=== PATIENT | male | born 1960 | race Caucasian/White ===

== ENCOUNTER 2018-03-19 08:59 | Outpatient (CLI) | payer OTHER ==
--- NOTE | 2018-03-19 13:40 | MRI ---
CERVICAL SPINE MRI WITHOUT IV CONTRAST: History: 58-year-old male with history of neck radiculopathy. M54.12 FINDINGS: Multiplanar, multisequence MRI examination of the cervical spine is performed. C2-3 disc level is unremarkable. C3-4: There is disc osteophytosis with some mild to moderate central canal and lateral recess stenosi s and bilateral foraminal stenosis, worse on the right side. C4-5: There is disc osteophytosis with a somewhat more focal central protrusion with moderate central canal stenosis and mild to moderate bilateral recess stenosis and moderate bilateral foraminal steno sis, worse on the right side. C5-6: There is diffuse disc osteophytosis with mild indention of the central thecal sac without signi ficant lateral recess stenosis and mild foraminal stenosis. C6-7: There is generalized disc osteophytosis with mild lateral recess and moderate bilateral foramin al stenosis without significant central canal stenosis. C7-T1: Unremarkable. No spinal cord mass or spinal cord compression. No significant abnormal marrow s ignal. IMPRESSION: Multilevel variable severity canal, lateral recess, and foraminal stenosis, particularly from C3-4 th rough C6-7. POS: [facility]
--- NOTE | 2018-03-19 15:07 | MRI ---
MRI LEFT SHOULDER: 03/19/2018 PROVIDED CLINICAL HISTORY: Left shoulder pain. FINDINGS: No radiographic comparisons. FINDINGS: Evaluation is markedly limited by patient motion. There is no evidence for a full-thickness rotator cuff tear. Partial-thickness undersurface tearing involving the anterior distal supraspinatus tendon, at the footplate, is suspected, which could be hi gh-grade in nature. The longhead biceps tendon appears intact and normally located. There is extensive glenohumeral articular cartilage loss, appearing full-thickness over much of the g lenoid articular surface. There are multiple bulky ossified intraarticular bodies present, measuring up to 3.4 cm in greatest dimension. Multiple large ossified bodies are also present within the long head biceps tendon sheath, measuring at least 6.1 cm in greatest craniocaudal dimension. There is de generative nondisplaced tearing involving the glenoid labrum. There is a moderate glenohumeral joint effusion. There is no significant subacromial, subdeltoid bursal fluid. Acromioclavicular joint os teoarthrosis is noted, which produces mass effect upon the subjacent supraspinatus. Rotator cuff mus cular volume appears preserved. IMPRESSION: 1. Limited study due to patient motion. 2. Partial-thickness undersurface tearing is suspected involving the anterior distal supraspinatus t endon of the footplate. 3. Extensive glenohumeral articular cartilage loss with multiple large intraarticular bodies within the glenohumeral joint, superior subscapularis recess, and longhead biceps tendon sheath. 4. Moderate glenohumeral joint effusion. 5. Acromioclavicular joint osteoarthrosis. POS: [facility]
== END 2018-03-19 09:00 | disposition home or self-care (01) ==
LOC: SCSMRI 08:59
PROVIDERS: ATTEND Orthopaedic Surgery Hand Surgery
DX: M25.512 Pain in left shoulder (principal); M54.12 Radiculopathy, cervical region; M19.012 Primary osteoarthritis, left shoulder; M25.412 Effusion, left shoulder; M24.112 Other articular cartilage disorders, left shoulder; M48.02 Spinal stenosis, cervical region
CPT/HCPCS: 72141

== ENCOUNTER 2018-07-10 00:09 | Outpatient (CLI) | payer OTHER ==
[2018-07-10 12:49] LABS: Anion Gap 11 mmol/L (10-20); BUN (Urea Nitrogen) 11 mg/dL (8.4-25.7); Calc. Creatinine Clearance 0 mL/min (70-130); Calcium 9.8 mg/dL (7.8-10.44); Carbon Dioxide 29 mmol/L (22-29); Chloride 104 mmol/L (98-107); Estimated GFR-MDRD 78; Glucose 96 mg/dL (70-105); Potassium 4.1 mmol/L (3.5-5.1); Sodium 140 mmol/L (136-145)
== END 2018-07-10 00:10 | disposition home or self-care (01) ==
LOC: LABBT 00:09
PROVIDERS: ATTEND Neurological Surgery
DX: Z01.818 Encounter for other preprocedural examination (principal); M54.12 Radiculopathy, cervical region
CPT/HCPCS: 80048; 93005; 93010

== ENCOUNTER 2018-07-16 06:30 | Day surgery (SDC) | payer OTHER ==
[2018-07-10 11:05] VITALS: BMI 29.2
--- NOTE | 2018-07-15 22:42 | HP ---
HISTORY OF PRESENT ILLNESS: Mr. Bobo is a 58-year-old man here for evaluation of significant bilateral C6 pains, which he dealt with for several years. He is having high-voltage electrocution in 2016. He has been dealing with several health concerns since that time. This being among them. He reports that over the last few months he started dropping condition to the pain and numbness that he already has had. MRI of the cervical spine reveals multilevel of severe stenosis in the bilateral neural foramina including C5-C6, which would best fit the symptoms. He has yet to treat this with anything other than medications, but given his increasing trouble with director of science strength, this likely has been precluded. PAST MEDICAL HISTORY: Significant for diabetes, hepatitis, hypertension, and arthritis. PAST SURGICAL HISTORY: Herniorrhaphy, unspecified lumbar back surgery. CURRENT MEDICATIONS: 1. Metformin. 2. Glimepiride. 3. Lisinopril. 4. Metoprolol. 5. Eliquis. 6. Gabapentin. ALLERGIES: NO KNOWN DRUG ALLERGIES. PHYSICAL EXAMINATION: GENERAL: The patient is alert and oriented x3. MUSCULOSKELETAL: Gait is normal. No ataxia. External exam is normal. Upper extremity and lower extremity motor exam reveals diminished director of science strength bilaterally. Out of proportion to the rest of his bilateral upper extremities revealing 5/5 strength with director of science being 4/5. REVIEW OF SYSTEMS: Denies fever, chills, weight loss, or night sweats. Denies indigestion, vomiting, or stool. Denies burning urination, blood in the urine, or incontinence, who does report pain in the arms and numbness and tingling. ASSESSMENT: Cervical radicular pain. PLAN: Dr. Melissa met with the patient, reviewed imaging, advocated for C5-C6 ACDF. He explained to the patient the risks, benefits, and alternatives to the procedure. The patient expressed understanding and elected to move forward with surgery as discussed. I do believe the patient is mentally competent capable of making medical decisions for himself. We will move forward with surgery as planned. Job ID: [id number]
[2018-07-16] MEDS ORDERED: Fentanyl 100 MCG/2 ML VIAL ONE ×4 (08:53→11:23)
[2018-07-16] MEDS ORDERED: Morphine 4 MG/ML VIAL ONE (12:10)
[2018-07-16] MEDS ORDERED: Promethazine HCl 25 MG/ML VIAL ONE (12:23)
[2018-07-16] MEDS ORDERED: Morphine 2 MG/ML SYRINGE ONE (13:24)
[2018-07-16] MEDS ORDERED: Tamsulosin HCl 0.4 MG CAP ONE (13:56)
[2018-07-16] MEDS ORDERED: ePHEDrine 50 MG/ML VIAL ONE (16:05)
[2018-07-16] MEDS ORDERED: Lidocaine 1% PF 5 ML VIAL ONE (16:05)
[2018-07-16] MEDS ORDERED: Ondansetron PF 4 MG/2 ML Vial ONE (16:05)
[2018-07-16] MEDS ORDERED: Rocuronium Bromide 10 MG/ML (10ML VIAL) ONE (16:05)
[2018-07-16] MEDS ORDERED: PROPOFOL 200 MG/20 ML VIAL ONE (16:05)
[2018-07-16] MEDS ORDERED: Glycopyrrolate 0.2 MG/ML 5 ML SYRINGE ONE (16:05)
--- NOTE | 2018-07-16 16:46 | OP ---
DATE OF PROCEDURE: 07/16/2018 TOOLING MANAGER: Angel Carmen PA-C INDICATION: Pain. DIAGNOSIS: C6 radiculopathy. PROCEDURE PERFORMED: Anterior cervical diskectomy and fusion, C5-C6. ANESTHESIA: General. DESCRIPTION OF PROCEDURE: The patient was brought into the operating room and placed under general anesthesia. He was placed on table in a supine position. A transverse incision was planned over the lateral aspect of the neck on the right. After prepping and draping and after an appropriate preoperative pause, the incision was created. The soft tissues were swept away from midline. The platysma muscle was identified and incised. A blunt tissue plane anterior to the sternocleidomastoid muscle was used to gain access to the prevertebral space. Self-retaining retractors were placed in the wound for optimal exposure. After confirming the appropriate level at C5-C6, an annulotomy was performed in the C5-C6 disk space. All disk material, as well as anterior and posterior osteophytes were removed. After complete decompression, a 7 mm lordotic PEEK cage packed with allograft and autograft material was placed within the interbody space. An anterior cervical plate was then fashioned to the front of spine and secured with a total of 4 fixed screws. Midline lateral structures were inspected and found to be free from significant trauma. The wound was irrigated. Hemostasis was maintained throughout. The wound was then closed in anatomic layers and a pressure dressing was applied. There were no known procedural complications. Job ID: [id number]
== END 2018-07-16 15:12 | disposition home or self-care (01) ==
LOC: SDC 06:30
PROVIDERS: ATTEND Neurological Surgery
PROC: 0RG10A0 Fusion of Cervical Vertebral Joint with Interbody Fusion Device, Anterior Approach, Anterior Column, Open Approach (ICD-10-PCS; principal; 2018-07-16)
PROC: 0RT30ZZ Resection of Cervical Vertebral Disc, Open Approach (ICD-10-PCS; principal; 2018-07-16)
DX: M54.12 Radiculopathy, cervical region (principal); M48.02 Spinal stenosis, cervical region; E11.9 Type 2 diabetes mellitus without complications; I10 Essential (primary) hypertension; M19.90 Unspecified osteoarthritis, unspecified site; I48.91 Unspecified atrial fibrillation; Z79.01 Long term (current) use of anticoagulants; Z79.84 Long term (current) use of oral hypoglycemic drugs; Z79.899 Other long term (current) drug therapy; Z98.890 Other specified postprocedural states
CPT/HCPCS: 36416; 76000; C1713; C1776; J0690; J2001; J2270; J2405; J2550; J2704; J3010; J3490

== ENCOUNTER 2021-03-14 09:08 | Emergency (ER) | payer OTHER ==
[~2021-03-14 09:08] MED LIST: Iopamidol-370 76% 500 ML 1 ML ONE
[2021-03-14 09:41] LABS: Bilirubin Negative (Negative); Blood, Urine Negative (Negative); Clarity Clear (Clear); Glucose, Urine (Dipstick) Normal (Negative); Ketone, Urine Negative (Negative); Leukocyte Negative Leu/uL (Negative); Nitrite Negative (Negative); Protein, Urine (Dipstick) Negative (Neg-Trace); Specific Gravity, Urine 1.017 (1.002-1.036); Urobilinogen Normal mg/dL (Less than 2)
[2021-03-14 09:52] LABS: #Eosinphils 0.3 thou/uL (0.0-0.7); #Monocytes 0.8 thou/uL (0.11-0.59); #Neutrophils 5.9 thou/uL (1.40-6.50); %Basophils 0.4 % (0.0-1.0); %Eosinophils 3.3 % (0.0-10.0); %Lymphocytes 21.8 % (21.0-51.0); %Monocytes 9.3 % (0.0-10.0); %Neutrophils 65.2 % (42.0-75.0); Hemoglobin 15.6 g/dL (14.0-18.0); Mean Corpuscular HGB CONC 33.9 g/dL (32.0-36.0); Mean Corpuscular Hemoglobin 31.8 pg (27.0-31.0); Mean Platelet Volume 7.6 fL (7.4-10.4); Platelet Count 298 thou/uL (130-400); RBC Distribution Width 11.4 % (11.5-14.5); Red Blood Cell (RBC) Count 4.91 mill/uL (4.70-6.10)
[2021-03-14] MEDS ORDERED: Morphine 4 MG/ML VIAL ONE (09:56)
[2021-03-14] MEDS ORDERED: Ondansetron PF 4 MG/2 ML Vial ONE (09:56)
[2021-03-14 10:16] LABS: ALT (SGPT) 15 U/L (8-55); AST (SGOT) 16 U/L (5-34); Alkaline Phosphatase 105 U/L (40-110); Anion Gap 10 mmol/L (10-20); BUN (Urea Nitrogen) 13 mg/dL (8.4-25.7); Bilirubin, Total 0.6 mg/dL (0.2-1.2); Calc. Creatinine Clearance 0 mL/min (70-130); Calcium 9.4 mg/dL (7.8-10.44); Carbon Dioxide 28 mmol/L (23-31); Chloride 103 mmol/L (98-107); Globulin 2.5 g/dL (2.4-3.5); Glucose 145 mg/dL (80-115); Potassium 4.2 mmol/L (3.5-5.1); Protein, Total 6.5 g/dL (5.8-8.1); Sodium 137 mmol/L (136-145)
== END 2021-03-14 11:44 | disposition home or self-care (01) ==
LOC: ERS 09:08
DX: S32.10XA Unspecified fracture of sacrum, initial encounter for closed fracture (principal); K86.9 Disease of pancreas, unspecified; I48.91 Unspecified atrial fibrillation; E11.9 Type 2 diabetes mellitus without complications; Z79.01 Long term (current) use of anticoagulants; Z79.84 Long term (current) use of oral hypoglycemic drugs; Z79.899 Other long term (current) drug therapy; W18.39XA Other fall on same level, initial encounter
CPT/HCPCS: 36415; 70450; 74177; 80053; 81003; 84484; 85025; 93005; 96374; 96375; J2270; J2405; Q9967

== ENCOUNTER 2022-11-02 08:35 | Outpatient (CLI) | payer OTHER | END 2022-11-02 08:36 | disposition home or self-care (01) | LOC: SCSMRI 08:35 | PROVIDERS: ATTEND Orthopaedic Surgery | DX: M19.012 Primary osteoarthritis, left shoulder (principal); M75.112 Incomplete rotator cuff tear or rupture of left shoulder, not specified as traumatic; M25.412 Effusion, left shoulder ==